=== PATIENT | female | born 1955 | race Caucasian/White ===

== ENCOUNTER 2018-06-04 13:10 | Emergency (ER) | payer OTHER ==
[~2018-06-04] VITALS: Ht 152.4 cm; Wt 68.2 kg
[2018-06-04 13:24] VITALS: Ht 152.4 cm; Wt 68.2 kg
[2018-06-04] MEDS ORDERED: LORAZEPAM 2 MG INJ IV ONE (14:00)
--- NOTE | 2018-06-04 14:04 | ERD ---
ER Documentation Chief Complaint Chief Complaint anxiety related chest pain/sudden now resolved non-radiating took CBD oil HPI 62-year-old female history of hypertension, rheumatoid arthritis and gastritis presents the ED complaining of anxiety, palpitations, body tingling and nausea after marijuana ingestion. ROS All systems reviewed and are negative except as per history of present illness. Allergies Allergies: Coded Allergies: No Known Allergy (Unverified , 06/04/18) PMhx/Soc Medical and Surgical Hx: pt denies Surgical Hx History of Surgery: No Anesthesia Reaction: No Hx Neurological Disorder: No Hx Respiratory Disorders: No Hx Cardiac Disorders: Yes (HTN) Hx Psychiatric Problems: No Hx Miscellaneous Medical Probl: Yes (RA) Hx Alcohol Use: No Hx Substance Use: Yes (CBD OIL 3HR PRIOR TO ARRIVAL) Hx Tobacco Use: No Smoking Status: Never smoker Physical Exam Vitals Vital Signs Date Temp Pulse Resp B/P (MAP) Pulse Ox O2 O2 Flow FiO2 Time Delivery Rate 06/04/18 177/102 15:59 (127) 06/04/18 210/111 15:13 (144) 06/04/18 86 196/100 14:59 (132) 06/04/18 105 20 206/105 100 14:30 (138) 06/04/18 214/95 14:15 (134) 06/04/18 98.9 102 22 195/108 98 13:24 (137) Physical Exam Const: Alert, anxious, moderate distress Head: Atraumatic Eyes: Normal Conjunctiva ENT: Normal External Ears, Nose and Mouth. Neck: Full range of motion. No meningismus. Resp: Clear to auscultation bilaterally Cardio: Regular rate and rhythm, no murmurs Abd: Soft, obese, non tender, non distended. Normal bowel sounds Skin: No petechiae or rashes Back: No midline or flank tenderness Ext: No cyanosis, or edema Neur: Awake and alert Psych: [place] but not depressed. Result Diagram: 06/04/18 1450 06/04/18 1450 Results 24 hrs Laboratory Tests Test 06/04/18 14:50 White Blood Count 6.9 10^3/ul Red Blood Count 4.09 10^6/ul Hemoglobin 11.9 g/dl Hematocrit 37.0 % Mean Corpuscular Volume 90.5 fl Mean Corpuscular Hemoglobin 29.1 pg Mean Corpuscular Hemoglobin Concent 32.2 g/dl Red Cell Distribution Width 14.5 % Platelet Count 290 10^3/UL Mean Platelet Volume 10.8 fl Immature Granulocytes % 0.300 % Neutrophils % 53.3 % Lymphocytes % 38.5 % Monocytes % 5.4 % Eosinophils % 2.2 % Basophils % 0.3 % Nucleated Red Blood Cells % 0.0 /100WBC Immature Granulocytes # 0.020 10^3/ul Neutrophils # 3.7 10^3/ul Lymphocytes # 2.6 10^3/ul Monocytes # 0.4 10^3/ul Eosinophils # 0.2 10^3/ul Basophils # 0.0 10^3/ul Nucleated Red Blood Cells # 0.0 10^3/ul Sodium Level 141 mmol/L Potassium Level 4.7 mmol/L Chloride Level 106 mmol/L Carbon Dioxide Level 22 mmol/L Anion Gap 13 Blood Urea Nitrogen 15 mg/dl Creatinine 0.53 mg/dl Est Glomerular Filtrat Rate mL/min > 60 mL/min Glucose Level 104 mg/dl Calcium Level 9.6 mg/dl Troponin I < 0.012 ng/ml Current Medications Medications Dose Sig/[place] Start Time Status Last (Trade) Ordered Route PRN Stop Time Admin Dose Reason Admin Lorazepam 0.5 mg ONCE ONCE 06/04/18 DC 06/04/18 (Ativan) IV 14:00 14:13 06/04/18 14:02 Procedures/MDM DOCUMENTS REVIEWED: ED nurse, prior records LAB INTERPRETATION: [] EKG: Time: 1317. Sinus rhythm. Ventricular rate 100, normal [place] and QRS intervals. No acute ST segment elevation or depression. No axis deviation or ectopy. My Interpretation: Normal EKG IMAGING: Chest AP portable. Cardiac silhouette is normal. The costophrenic angles are clear. No effusions or infiltrates. No abnormalities of the bony thorax. My interpretation. ED COURSE: [] REEXAMINATION/REEVALUATION: Time: 16:04. Improved MEDICAL DECISION MAKIN-year-old female history of hypertension, rheumatoid arthritis and gastritis presents the ED complaining of anxiety, palpitations, body tingling and nausea after marijuana ingestion.. Stable for discharge with precautionary instructions and outpatient follow-up as counseled. Though the patient's latest blood pressure was elevated (>120/80), the patient has a known history of hypertension and urged to pursue adjustment of their medical therapy within a week with their primary care physician. Please refer to the medication reconciliation form for the current list of hypertensive medications. Counseled patient[ and family] regarding diagnostic workup, diagnosis and need for followup. Understands to return to ED if symptoms recur, worsen or any other concerns. Departure Diagnosis: Primary Impression: Palpitations Additional Impressions: Anxiety Accidental marijuana overdose Encounter type: initial encounter Qualified Codes: T40.7X1A - Poisoning by cannabis (derivatives), accidental (unintentional), initial encounter Poorly-controlled hypertension Condition: Stable KATHI ALVES MD Jun 04, 2018 14:04
[2018-06-04 14:30] VITALS: RESP 20
[2018-06-04 14:59] VITALS: PULSE 86
[2018-06-04 15:59] VITALS: BP 177/102
== END 2018-06-04 16:54 | disposition home or self-care (01) ==
LOC: E/R 13:10
DX: F41.9 Anxiety disorder, unspecified (principal); I10 Essential (primary) hypertension; T40.7X1A Poisoning by cannabis (derivatives), accidental (unintentional), initial encounter
CPT/HCPCS: 71045; 80048; 84484; 85025; 93005; 96374; J2060; Z7502